=== PATIENT | male | born 1990 | race Caucasian/White ===

== ENCOUNTER 2020-11-21 08:33 | Outpatient (CLI) | payer BC ==
[2020-11-21] MEDS ORDERED: Gadobenate Dimeglumine 529 MG/1 ML (20ML VIAL) ONE (09:00)
[2020-11-21] MEDS ORDERED: Iopamidol 300 61% 50 ML VIAL FS ONE (09:00)
[2020-11-21] MEDS ORDERED: Lidocaine 1% PF 10 ML AMP ONE (09:00)
[2020-11-21] MEDS ORDERED: EPINEPHrine 1 MG/ML AMP ONE (09:00)
== END 2020-11-21 08:34 | disposition home or self-care (01) ==
LOC: RAD 08:33
PROVIDERS: ATTEND Orthopaedic Surgery
DX: M25.511 Pain in right shoulder (principal); M75.111 Incomplete rotator cuff tear or rupture of right shoulder, not specified as traumatic; M75.41 Impingement syndrome of right shoulder; M25.811 Other specified joint disorders, right shoulder
CPT/HCPCS: 23350; A9577; J0171; J2001; Q9967

== ENCOUNTER 2023-02-17 11:23 | Outpatient (CLI) | payer OTHER | END 2023-02-17 11:24 | disposition home or self-care (01) | LOC: BICMRI 11:23 | PROVIDERS: ATTEND Nurse Practitioner Family | DX: S83.8X1D Sprain of other specified parts of right knee, subsequent encounter (principal); S83.411A Sprain of medial collateral ligament of right knee, initial encounter ==